=== PATIENT | male | born 1985 | race Caucasian/White ===

== ENCOUNTER 2018-04-02 05:41 | Day surgery (SDC) | END 2018-04-02 10:35 | disposition home or self-care (01) ==

== ENCOUNTER 2019-02-18 08:33 | Day surgery (SDC) | payer OTHER ==
[2019-02-16 16:22] VITALS: BMI 26.9
[2019-02-18] VITALS (19 sets, daily range): BP systolic 124–158; BP diastolic 66–86; PULSE 68–124; RESP 11–20; Ht 167.6 cm; Wt 88.2 kg
[~2019-02-18] VITALS: Ht 167.6 cm; Wt 88.2 kg
--- NOTE | 2019-02-18 06:02 | HPN ---
Date/Time of Note Date/Time of Note DATE: 02/18/19 TIME: 06:02 Interval H&P Admission Note Pt. seen H&P reviewed: No system changes JOHNATHON ALVAREZ MD February 18, 2019 06:02
--- NOTE | 2019-02-18 06:04 | OPR ---
Date/Time of Note Date/Time of Note DATE: 02/18/19 TIME: 06:02 Operative Report Procedure Date: February 18, 2019 Preoperative Diagnosis Right shoulder recurrent instability Postoperative Diagnosis 1. Right shoulder anterior labral tear 2. Right shoulder posttraumatic arthritis Operation/Procedure Performed 1. Right shoulder arthroscopic labral repair 2. Right shoulder arthroscopic chondroplasty of humeral head Surgeon see signature line Radio Mechanic Helper Cheo Sheldon DO Second Radio Mechanic Helper: ANDRADE BANGURA PA-C Anesthesia Type: general Estimated Blood Loss: minimal Transfusion none Specimen None Grafts/Implants See op note Complications none Pt Condition Post Procedure: stable Disposition: PACU Procedure Description CRATE BUILDER SURGEON: Ceho Sheldon DO was asked to be present at my request as a result of the complexity associated with this procedure including positioning of the extremities, manipulation of the arthroscope and assistance with time. In my opinion the assistance offered by a registered nurse surgical services is insufficient and Dr. Sheldon should be compensated for his time. PROCEDURE IN DETAIL: Following the administration of general anesthesia supplemented with a peripheral nerve block for postoperative pain control, the patient was examined under anesthesia. Examination of the right shoulder revealed significant anterior and inferior laxity of 2+ anterior and the same inferior. There was no posterior laxtiy. There was forward flexion of about 140 abduction 80 maximal external rotation. There was significant glenohumeral crepitus with rotation of the arm. The patient was then placed in the left lateral decubitus position. Sterile prep and drape was then undertaken of the right shoulder. Anterior and posterior glenohumeral portals were established. Glenohumeral arthroscopy revealed that the humeral and glenoid articular cartilage revealed evidence of the dislocation with a very large Hill-Sachs lesion. This area extended from superior to inferior almost the entirety of the humerus and approximately 10 mm to 15 mm into the humeral articular surface. In addition, there was a significant central portion of grade IV chondromalacia. There was severe synovitis in the glenohumeral joint. With respect to the glenoid, there was a deficiency anterior inferior with erosion of the glenoid. There was no bony Bankart. The humeral ligament inferiorly was a avulsed and retracted and scarred medially. This was mobilized. The area of deficiency was approximately 20%. There did not appear to be a significant engagement of the Hill-Sachs and the bony deficiency. The subscapularis was visualized and this was normal. There was no tearing there. The supraspinatus had a partial superficial frayed area at the footprint and that was about 1 cm in the AP plane and 5 mm medially. THis was debrided down to stable tissue. The biceps was noted to be intact the exception of the superior labral fraying. The actual superior labrum and the anchor of the biceps was intact. A debridement and chondroplasty of the central humeral head area was then undertaken in a stable tissue. In the and an area approximately 2 cm from anterior to posterior 1 cm medial to lateral and the superior third of the articular surface was grade IV chondromalacia with exposed bony bone. Following this the repair was done. Typically, two 3.2 mm, double loaded anchors were then placed in the anterior, inferior glenoid after mobilization of the glenohumeral ligament and decortication of the area. A good bleeding plate was established prior to anchor insertion. Subsequently, the sutures were then passed using suture penetrators and using sliding, locking knots, a solid repair of the Bankart lesion was then completed. The joint was then thoroughly irrigated, the deep tissues were approximated using 4-0 Monocryl f followed by a sterile dressing. A sling was then applied. The patient was awakened and transported to the recovery room in stable condition. JOHNATHON ALVAREZ MD February 18, 2019 06:04
[~2019-02-18 08:33] MED LIST: CEFAZOLIN 2 GM/50 ML (PMX) 50 ML IVPB SCH; DEXAMETHASONE 2 MG TAB PO SCH; GABAPENTIN 300 MG CAP PO SCH; TRANEXAMIC ACID 1GM/100ML(PMX) 100 ML IVPB SCH
--- NOTE | 2019-02-18 12:00 | PREAC ---
Date/Time of Note Date/Time of Note DATE: 02/18/19 TIME: 11:58 Anesthesia Eval and Record Evaluation Time Pre-Procedure Interview DATE: 02/18/19 TIME: 11:58 Age 33 Sex male NPO: 8 hrs Preoperative diagnosis R. Shoulder Pain Planned procedure Arthroscopy, Rotator cuff repair Past Medical History Past Medical History: Includes GI: Obesity Surgery & Anesthesia Issues No known issue Meds Anticoagulation: No Beta Michael within 24 hr: No Reason Beta Michael not given: Pt. not on B-Michael No Active Prescriptions or Reported Meds Current Medications Cefazolin Sodium/ Dextrose 50 ml @ 100 mls/hr PRE-OP IVPB ; Start 02/18/19 at 06:00; Stop 02/18/19 at 16:00 Gabapentin (Neurontin) 300 mg PRE-OP PO Last administered on 02/18/19at 10:20; Admin Dose 300 MG; Start 02/18/19 at 06:00; Stop 02/18/19 at 16:00 Tranexamic Acid 100 ml @ 200 mls/hr Pre-op IVPB ; Start 02/18/19 at 06:00; Stop 02/18/19 at 16:00 Dexamethasone (Decadron) 2 mg ONCE PO Last administered on 02/18/19at 10:20; Admin Dose 2 MG; Start 02/18/19 at 06:00; Stop 02/18/19 at 16:00 Meds reviewed: Yes Allergies Coded Allergies: No Known Drug Allergies (Unverified Allergy, Unknown, 02/18/19) Allergies Reviewed: Yes Labs/Studies Labs Reviewed: Reviewed by anesthesiologist test: N/A Pre-procedure Exam Last vitals Vital Signs Date Temp Pulse Resp B/P (MAP) Pulse Ox O2 O2 Flow FiO2 Time Delivery Rate 02/18/19 97.6 68 16 138/78 97 Room Air 10:23 (98) Airway: Adequate mouth opening Mallampati: Mallampati III Teeth: Normal Lung: Normal Heart: Normal ASA Physical Status ASA physical status: 2 Emergency: None Planned Anesthetic General/MAC: ETT Planned Pain Management Single shot nerve block (Interscalen Nerve Block) Pre-operative Attestations Prior to commencing anesthesia and surgery, the patient was re-evaluated, there was verification of: *The patient's identity *The results of appropriate recent lab work and preoperative vital signs *The above evaluation not changing prior to induction *Anesthetic plan, risk benefits, alternative and complications discussed with patient/family; questions answered; patient/family understands, accepts and wis hes to proceed. YESSY CHANCE MD February 18, 2019 12:00
[2019-02-18] MEDS ORDERED: ROCURONIUM 50 MG INJ ONE (12:08)
[2019-02-18] MEDS ORDERED: CEFAZOLIN 1 GM INJ ONE (12:08)
[2019-02-18] MEDS ORDERED: PROPOFOL 20 ML ONE (12:08)
[2019-02-18] MEDS ORDERED: MIDAZOLAM 1 MG/ML 2 ML INJ ONE (12:08)
[2019-02-18] MEDS ORDERED: SUCCINYLCHOLINE CHLORIDE 100 MG/5 ML SYG IV ONE (12:08)
[2019-02-18] MEDS ORDERED: KETOROLAC 30 MG INJ ONE (12:09)
[2019-02-18] MEDS ORDERED: ONDANSETRON 4 MG INJ ONE (12:09)
[2019-02-18] MEDS ORDERED: EPINEPHrine 1 MG/ML 30 ML INJ ZFS SCH (12:30)
[2019-02-18] MEDS ORDERED: ROPIVACAINE 0.5 % 30 ML VIAL ONE (12:34)
[2019-02-18] MEDS ORDERED: hydrALAzine 20 MG INJ ONE (13:05)
[2019-02-18] MEDS ORDERED: LABETALOL HCL 20MG INJ ONE (13:14)
[2019-02-18] MEDS ORDERED: GLYCOPYRROLATE 0.4 MG INJ ONE (13:39)
[2019-02-18] MEDS ORDERED: NEOSTIGMINE 3 MG/3 ML SYRINGE ONE (13:39)
--- NOTE | 2019-02-18 13:55 | PDOCDIS ---
Discharge Instructions DIAGNOSIS Discharge Diagnosis Shoulder instability CONDITION [id number] Patient Condition: [id number] Good HOME CARE INSTRUCTIONS: [id number] Diet Instructions: [id number] Regular ACTIVITY: [id number] Activity Restrictions: [id number] Rest between Activity Keep Limb Elevated [id number] Bathing Restrictions: [id number] Shower FOLLOW UP/APPOINTMENTS Follow-up Plan 2 weeks in the office SCHOOL/WORK RELEASE May return to School/Work with: With Restrictions School/Work Release Comment: 5 pound tabletop activities for 6 weeks JOHNATHON ALVAREZ MD February 18, 2019 13:55
--- NOTE | 2019-02-18 14:05 | PAC ---
Date/Time of Note Date/Time of Note DATE: 02/18/19 TIME: 14:04 Post-Anesthesia Notes Post-Anesthesia Note Last documented vital signs Vital Signs Date Temp Pulse Resp B/P (MAP) Pulse Ox O2 O2 Flow FiO2 Time Delivery Rate 02/18/19 97.6 68 16 138/78 97 Room Air 10:23 (98) Activity: WNL Respiratory function: WNL Cardiovascular function: WNL Mental status: Baseline Pain reasonably controlled: Yes Hydration appropriate: Yes Nausea/Vomiting absent: Yes YESSY CHANCE MD February 18, 2019 14:05
[2019-02-18] MEDS ORDERED: ONDANSETRON 4 MG INJ IV PRN ×2 (14:30)
[2019-02-18] MEDS ORDERED: HYDROmorphONE 1 MG/5 ML IV SYRINGE IV PRN (14:30)
[2019-02-18] MEDS ORDERED: HYDROmorphONE 1 MG/ML SYG IV PRN (16:00)
[2019-02-18] MEDS ORDERED: LORAZEPAM 2 MG INJ IV ONE (17:30)
== END 2019-02-18 21:07 | disposition home or self-care (01) ==
LOC: SDS 08:33
PROVIDERS: ATTEND Orthopaedic Surgery
DX: S43.401A Unspecified sprain of right shoulder joint, initial encounter (principal); M19.111 Post-traumatic osteoarthritis, right shoulder; E66.9 Obesity, unspecified; X58.XXXA Exposure to other specified factors, initial encounter; Y93.89 Activity, other specified; Y92.89 Other specified places as the place of occurrence of the external cause; Y99.8 Other external cause status
CPT/HCPCS: 29806; J0171; J0360; J0690; J1170; J1885; J2060; J2250; J2405; J2710; J2795; J3010; Z7512; Z7610